=== PATIENT | female | born 1950 | race Caucasian/White ===

== ENCOUNTER 2017-06-07 12:22 | Emergency (ER) | payer BC, OTHER ==
[2017-06-07 13:08] VITALS: BP 167/88; PULSE 79; TEMP 99.2; BMI 24.0
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
== END 2017-06-07 15:11 | disposition home or self-care (01) ==
LOC: FER 12:22
DX: T23.201A Burn of second degree of right hand, unspecified site, initial encounter (principal); X12.XXXA Contact with other hot fluids, initial encounter; Y93.89 Activity, other specified; Y92.9 Unspecified place or not applicable; I10 Essential (primary) hypertension; E78.00 Pure hypercholesterolemia, unspecified
CPT/HCPCS: 99282-25